=== PATIENT | female | born 2000 | race Caucasian/White ===

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

== ENCOUNTER 2019-06-03 01:47 | Emergency (ER) | payer OTHER ==
[2019-06-03 01:52] VITALS: BP 109/84
--- NOTE | 2019-06-03 01:53 | ER Report ---
History and Physical Time Seen By MD: 01:50 HPI/ROS CHIEF COMPLAINT: Vomiting, abdominal cramping HISTORY OF PRESENT ILLNESS: 18-year-old female presents ambulatory to the ER. She had a sudden severe abdominal cramp after having mild cramps all day. She was thinking intermenstrual period would be starting soon. She is one week late. Her last menstrual period was in the part of April. Patient vomited. Because of the severity of the cramping pain. She's been feeling mildly nauseated all day. Patient admits that she may be . She has been sexually active without control. Patient denies vaginal bleeding or spotting. Patient denies dysuria. REVIEW OF SYSTEMS: Respiratory: No cough, no dyspnea. Cardiovascular: No chest pain, no palpitations. Gastrointestinal: As above Musculoskeletal: No back pain. Allergies: Coded Allergies: Penicillins (Verified Allergy, Intermediate, HIVES, 07/07/17) cefprozil (Verified Allergy, Mild, itching, 10/29/17) Home Meds Active Scripts Ondansetron 4 Mg Odt (ONDANSETRON 4 MG ODT) 4 Mg Tab.rapdis, 4 MG PO Q6H PRN for NAUSEA/VOMITING, #15 TAB 1 Refill Prov:NICKIE MAGDALENO Wyatt DO 06/03/19 Discontinued Reported Medications Escitalopram Oxalate (LEXAPRO) 20 Mg Tablet, 10 MG PO QDAY, TAB 04/13/18 Reviewed Nurses Notes: Yes Old Medical Records Reviewed: Yes Hx Smoking: No Hx Substance Use Disorder: No Hx Alcohol Use: No Constitutional Vital Sign - Last 24 Hours 06/03/19 01:52 Temp 98.9 Pulse 112 Resp 18 B/P (MAP) 109/84 Pulse Ox 96 O2 Delivery Room Air Physical Exam Vital signs stable, afebrile, pulse ox normal General Appearance: The patient is alert, has no immediate need for airway protection and no current signs of toxicity. Vital signs stable, afebrile, pulse ox normal Eyes: Pupils equal and round no injection. Respiratory: Chest is non tender, lungs are clear to auscultation. Cardiac: regular rate and rhythm Gastrointestinal: Abdomen is soft and non tender, no masses, bowel sounds normal. Musculoskeletal: Neck: Neck is supple and non tender. Extremities have full range of motion and are non tender. Skin: No rashes or lesions. DIFFERENTIAL DIAGNOSIS: After history and physical exam differential diagnosis was considered for abdominal pain including but not limited to appendicitis, cholecystitis, gastritis and urinary tract infection. Medical Decision Making Data Points Laboratory Hematology Test 06/03/19 01:50 Urine Color Yellow Urine Clarity Slightly-cloudy Urine pH 6.0 pH (4.8-9.5) Urine Specific [place] 1.024 Urine Protein Negative mg/dL (NEGATIVE) Urine Glucose (UA) Negative mg/dL (NEGATIVE) Urine Ketones Negative mg/dL (NEGATIVE) Urine Blood Negative (NEGATIVE) Urine Nitrite Negative (NEGATIVE) Urine Bilirubin Negative (NEGATIVE) Urine Urobilinogen Negative mg/dL (0.2-1.9) Urine Leukocyte Esterase Negative (NEGATIVE) Urine RBC 1 /HPF (0-2/HPF) Urine WBC 1 /HPF (0-5/HPF) Urine Squamous Epithelial Cells Many /LPF (</=FEW) Urine Bacteria Few /HPF (NONE-FEW) Urine Hyaline Casts Few /LPF (NONE-FEW) Urine Mucus Few /HPF (NONE-FEW) Urine HCG, Qualitative Positive (NEGATIVE) Chemistry Test 06/03/19 01:50 Urine Color Yellow Urine Clarity Slightly-cloudy Urine pH 6.0 pH (4.8-9.5) Urine Specific [place] 1.024 Urine Protein Negative mg/dL (NEGATIVE) Urine Glucose (UA) Negative mg/dL (NEGATIVE) Urine Ketones Negative mg/dL (NEGATIVE) Urine Blood Negative (NEGATIVE) Urine Nitrite Negative (NEGATIVE) Urine Bilirubin Negative (NEGATIVE) Urine Urobilinogen Negative mg/dL (0.2-1.9) Urine Leukocyte Esterase Negative (NEGATIVE) Urine RBC 1 /HPF (0-2/HPF) Urine WBC 1 /HPF (0-5/HPF) Urine Squamous Epithelial Cells Many /LPF (</=FEW) Urine Bacteria Few /HPF (NONE-FEW) Urine Hyaline Casts Few /LPF (NONE-FEW) Urine Mucus Few /HPF (NONE-FEW) Urine HCG, Qualitative Positive (NEGATIVE) Urinalysis Test 06/03/19 01:50 Urine Color Yellow Urine Clarity Slightly-cloudy Urine pH 6.0 pH (4.8-9.5) Urine Specific [place] 1.024 Urine Protein Negative mg/dL (NEGATIVE) Urine Glucose (UA) Negative mg/dL (NEGATIVE) Urine Ketones Negative mg/dL (NEGATIVE) Urine Blood Negative (NEGATIVE) Urine Nitrite Negative (NEGATIVE) Urine Bilirubin Negative (NEGATIVE) Urine Urobilinogen Negative mg/dL (0.2-1.9) Urine Leukocyte Esterase Negative (NEGATIVE) Urine RBC 1 /HPF (0-2/HPF) Urine WBC 1 /HPF (0-5/HPF) Urine Squamous Epithelial Cells Many /LPF (</=FEW) Urine Bacteria Few /HPF (NONE-FEW) Urine Hyaline Casts Few /LPF (NONE-FEW) Urine Mucus Few /HPF (NONE-FEW) Urine HCG, Qualitative Positive (NEGATIVE) ED Course/Re-evaluation ED Course Patient was admitted to an examination room. H&P was done. The differential diagnoses was considered. On clinical examination. Patient has nausea and has vomited once. She has abdominal cramps. She is late for her menstrual period. A urinalysis is performed which is negative for evidence of infection. A urine test is positive. Patient's improved after sublingual Zofran. Patient's advised to follow-up with [facility] CL[facility] and get established for care. She should start on vitamins and folate. Decision to Disposition Date: Jun 03, 2019 Decision to Disposition Time: 02:12 Depart Departure Latest Vital Signs Vital Signs Date Time Temp Pulse Resp B/P (MAP) Pulse Ox O2 Delivery O2 Flow Rate FiO2 06/03/19 01:52 98.9 112 18 109/84 96 Room Air Impression: Primary Impression: Early stage of Additional Impression: Vomiting Condition: Improved Disposition: HOME OR SELF-CARE Referrals: CONCETTA RENO MD (PCP) New Scripts Ondansetron 4 Mg Odt (ONDANSETRON 4 MG ODT) 4 Mg Tab.rapdis 4 MG PO Q6H PRN for NAUSEA/VOMITING, #15 TAB 1 Refill Prov: NICKIE MAGDALENO DO 06/03/19 Patient Instructions: (ED) Additional Instructions: Follow-up with [facility] CL[facility] for care Problem Qualifiers Additional Impression: Vomiting Vomiting type: unspecified Vomiting Intractability: unspecified Nausea presence: with nausea Qualified Codes: R11.2 - Nausea with vomiting, unspecified NICKIE MAGDALENO DO Jun 03, 2019 01:53
[2019-06-03] MEDS ORDERED: ONDANSETRON 4 MG ODT TABDP SL ONE (02:00)
[2019-06-03] MEDS ORDERED: ONDANSETRON 4 MG ODT TH SL ONE (02:15)
[2019-06-03] MEDS ORDERED: ONDA4TAB9 PO (02:16)
== END 2019-06-03 02:23 | disposition home or self-care (01) ==
LOC: ER 02:06
DX: R11.2 Nausea with vomiting, unspecified (principal); Z33.1 Pregnant state, incidental
CPT/HCPCS: 81001; 81025; 99283; S0119

== ENCOUNTER → 2019-06-20 | Outpatient (CLI) | payer OTHER ==
[~2019-06-20] MED LIST changes: +FEXO180T87 PO; +ONDA4TAB9 PO; +PREN-127 PO
== END ==
LOC: LAB 08:10
PROVIDERS: ATTEND Obstetrics & Gynecology
DX: Z02.9 Encounter for administrative examinations, unspecified (principal)